=== PATIENT | female | born 1935 | race Caucasian/White ===

== ENCOUNTER → 2016-07-05 | Outpatient (CLI) | payer MEDICARE, BC ==
[2014-08-26 12:01] VITALS: BP 165/52
[~2016-07-05] MED LIST: LATA2.5D3 EACHEYE; LEVO50TA5 PO; MECL25TA3 PO; ONDA4TAB10 SL
[2016-07-05 10:23] LABS: BASO % 1 % (0-3); EOS # 0.1 x10^3/uL (0.0-0.7); EOS % 2 % (0-3); HEMATOCRIT 39.2 % (36.0-47.0); HEMOGLOBIN 13.3 g/dL (12.0-15.5); LYMPH # 1.1 x10^3/uL (1.0-4.8); LYMPH % 25 % (24-48); MEAN CORPUSCULAR HEMOGLOBIN 30 pg (25-35); MEAN CORPUSCULAR HGB CONC 34 g/dL (31-37); MEAN CORPUSCULAR VOLUME 88 fL (79-100); MONO # 0.4 x10^3/uL (0.0-1.1); MONO % 10 % (0-9); NEUT # 2.7 x10^3uL (1.8-7.7); NEUT % 62 % (31-73); PLATELET COUNT 181 x10^3/uL (140-400); RED BLOOD COUNT 4.44 x10^6/uL (3.50-5.40); WHITE BLOOD COUNT 4.4 x10^3/uL (4.0-11.0)
[2016-07-05 10:35] LABS: ALBUMIN 3.6 g/dL (3.4-5.0); ALBUMIN/GLOBULIN RATIO 0.8 (1.0-1.7); CALCIUM 9.1 mg/dL (8.5-10.1); CREATININE 0.7 mg/dL (0.6-1.0); GFR 79.9; POTASSIUM 4.2 mmol/L (3.5-5.1); TOTAL BILIRUBIN 0.6 mg/dL (0.2-1.0); TOTAL PROTEIN 8.4 g/dL (6.4-8.2)
[2016-07-05 23:07] LABS: T3 TOTAL 142 ng/dL (71-180); THYROXINE 9.6 ug/dL (4.5-12.0)
[2016-07-08 20:10] LABS: HCV ULTRA QUANT PCR 50400 IU/mL (.)
== END | disposition home or self-care (01) ==
LOC: LAB 09:43
PROVIDERS: ATTEND Internal Medicine Gastroenterology
DX: B19.20 Unspecified viral hepatitis C without hepatic coma (principal); E03.9 Hypothyroidism, unspecified; E83.119 Hemochromatosis, unspecified
CPT/HCPCS: 36415; 80053; 82728; 84436; 84443; 84480; 85027; 87521

== ENCOUNTER → 2016-07-21 | Outpatient (CLI) | payer MEDICARE, BC ==
[2014-08-26 12:01] VITALS: BP 165/52
--- NOTE | 2016-07-21 17:08 | RAD ---
Three-view right foot radiographs 07/21/2016 Clinical history: Right foot pain and bruising for one week. Recent fall. AP, lateral and oblique digital radiographs of the right foot were obtained. There is diffuse osteopenia of the visualized bony structures. No fracture or dislocation of the right foot is seen. Mild to moderate degenerative changes are seen scattered throughout the interphalangeal and first MTP joint of the right foot. Mild to moderate enthesophyte formation is seen involving the right calcaneus. Impression: No acute fracture or dislocation of the right foot is seen.
== END | disposition home or self-care (01) ==
LOC: DXRADRC 15:28
PROVIDERS: ATTEND Nurse Practitioner Family
DX: M85.871 Other specified disorders of bone density and structure, right ankle and foot (principal); X58.XXXD Exposure to other specified factors, subsequent encounter
CPT/HCPCS: 73630

== ENCOUNTER → 2016-12-15 | Outpatient (CLI) | payer MEDICARE ==
[2014-08-26 12:01] VITALS: BP 165/52
[2016-12-17 18:07] LABS: HCV ULTRA QUANT PCR HCV Not Detected IU/mL (.)
== END | disposition home or self-care (01) ==
LOC: LAB 15:05
PROVIDERS: ATTEND Internal Medicine Gastroenterology
DX: B18.2 Chronic viral hepatitis C (principal)
CPT/HCPCS: 36415; 87521

== ENCOUNTER → 2017-04-16 | Outpatient (CLI) | payer MEDICARE ==
[2014-08-26 12:01] VITALS: BP 165/52
[2017-04-16 10:51] LABS: ALBUMIN 3.8 g/dL (3.4-5.0); DIRECT BILIRUBIN 0.2 mg/dL (0.0-0.2); TOTAL BILIRUBIN 0.5 mg/dL (0.2-1.0); TOTAL PROTEIN 8.4 g/dL (6.4-8.2)
[2017-04-18 19:07] LABS: HCV ULTRA QUANT PCR HCV Not Detected IU/mL (.)
== END | disposition home or self-care (01) ==
LOC: LAB 10:12
PROVIDERS: ATTEND Internal Medicine Gastroenterology
DX: B18.2 Chronic viral hepatitis C (principal)
CPT/HCPCS: 36415; 80076; 87521